=== PATIENT | female | born 1995 | race Caucasian/White ===

== ENCOUNTER 2016-10-29 20:57 | Emergency (ER) | payer OTHER | END 2016-10-29 23:00 | disposition home or self-care (01) | LOC: ER 20:57 | DX: J01.80 Other acute sinusitis (principal); J02.9 Acute pharyngitis, unspecified; R05 Cough; Z79.899 Other long term (current) drug therapy; Z79.3 Long term (current) use of hormonal contraceptives; Z88.0 Allergy status to penicillin | CPT/HCPCS: 99282 ==